=== PATIENT | male | born 1945 | race Caucasian/White ===

== ENCOUNTER 2016-12-01 17:16 | Observation (INO) | payer OTHER, MEDICARE ==
[~2016-12-01] VITALS: Ht 175.3 cm; Wt 81.5 kg
[~2016-12-01 17:16] MED LIST: ASPI81TA82 PO; BUPR150XL PO; CARV25TA PO; COUM5TAB PO; FURO1TAB93 PO; GLIP5 PO; KLOR20TA6 PO; LISI10 PO; SIMV80TA PO; VENTAER INH; WARF5TAB PO
[2016-12-01 17:19] VITALS: BP 198/93; PULSE 89; RESP 17; TEMP 98.4; O2SAT 97
--- NOTE | 2016-12-01 17:25 | PD ---
Physical Exam Date Seen by Provider: Dec 01, 2016 Time Seen by Provider: 17:24 Narrative 71 yo male here for evaluation of chest discomfort. Feels like he is under a lot of stress. Has numbness to the hands, but chest better. [facility] Per patient abnormal vitals at the [place]. History of arrythmia with pacemaker. Some SOB. No abdominal pain. No pain now. Vitals stable in triage. Awaiting bed placement. Data Data Last Documented VS Vital Signs Date Time Temp Pulse Resp B/P (MAP) Pulse Ox O2 Delivery O2 Flow Rate FiO2 12/01/16 17:19 98.4 89 17 198/93 (128) 97 MDM Medical Record Reviewed: Yes Supervised Visit with HENNY: Corey Pichardo Dec 01, 2016 17:25
[2016-12-01 17:32] VITALS: BP 182/81; PULSE 76; RESP 19; O2SAT 98
[2016-12-01] MEDS ORDERED: LISI10TA3 PO (17:44)
[2016-12-01] MEDS ORDERED: COUM5TAB PO (17:44)
[2016-12-01] MEDS ORDERED: FURO1TAB60 PO (17:44)
[2016-12-01] MEDS ORDERED: CARV25TA PO (17:44)
[2016-12-01] MEDS ORDERED: TYLE325T PO (17:44)
[2016-12-01] MEDS ORDERED: ASPI81CH (17:44)
[2016-12-01] MEDS ORDERED: COUM7.5T PO (17:44)
[2016-12-01] MEDS ORDERED: SIMV80TA PO (17:44)
[2016-12-01] MEDS ORDERED: VENTAER INH (17:44)
--- NOTE | 2016-12-01 17:58 | RADRPT ---
EXAM DATE/TIME: 12/01/2016 17:42 [place] COMPARISON: CHEST SINGLE AP, December 07, 2015, 17:13. INDICATIONS : Chest pain. MEDICAL HISTORY : Chronic obstructive pulmonary disease. A Fib. SURGICAL HISTORY : Pacemaker. Triple Bypass. ENCOUNTER: Initial ACUITY: 1 day PAIN SCORE: 4/10 LOCATION: Bilateral chest FINDINGS: Lungs are clear. Cardiomegaly is again seen, and median sternotomy wires are noted. Pacer device agai n noted. CONCLUSION: No acute disease. Zia Crawford MD on December 01, 2016 at 17:56 Board Certified Radiologist. This report was verified electronically.
[2016-12-01] MEDS ORDERED: ASPIRIN 81 MG CHEW TAB CHEW ONE (18:00)
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
[2016-12-01 18:39] VITALS: BP 147/71; PULSE 73; O2SAT 100
[2016-12-01 18:57] LABS: AUTOMATED NEUTROPHIL # 4.4 TH/MM3 (1.8-7.7); BASOPHIL % 0.4 % (0.0-2.0); EOSINOPHIL # 0.3 TH/MM3 (0-0.4); EOSINOPHIL % 4.7 % (0.0-4.0); HEMATOCRIT 40.8 % (39.0-51.0); HEMO FLAGS DIFF FINAL; LYMPH % 21.6 % (9.0-44.0); LYMPHOCYTE # 1.5 TH/MM3 (1.0-4.8); MEAN CELL VOLUME 96.1 FL (80.0-100.0); MEAN CORPUSCULAR HEMOGLOBIN 32.2 PG (27.0-34.0); MEAN CORPUSCULAR HGB CONC 33.5 % (32.0-36.0); MONO % 9.9 % (0.0-8.0); NEUT % 63.4 % (16.0-70.0); PLATELET COUNT 140 TH/MM3 (150-450); RED BLOOD COUNT 4.24 MIL/MM3 (4.50-5.90); RED CELL DISTRIBUTION WIDTH 15.5 % (11.6-17.2); WHITE BLOOD COUNT 6.9 TH/MM3 (4.0-11.0)
[2016-12-01 19:10] VITALS: BP 134/84; PULSE 69
[2016-12-01 19:17] LABS: APTT (PATIENT) 40.9 SEC (24.3-30.1); INTERNATIONAL NORMALIZED RATIO 3.1 RATIO; PROTHROMBIN TIME - PATIENT 36.3 SEC (9.8-11.6)
[2016-12-01 19:29] LABS: ANION GAP 9 MEQ/L (5-15); BICARBONATE 23.7 MEQ/L (21.0-32.0); BLOOD UREA NITROGEN 56 MG/DL (7-18); CHLORIDE 107 MEQ/L (98-107); GLOMERULAR FILTRATION RATE 28 ML/MIN (>89); MAGNESIUM 2.1 MG/DL (1.5-2.5); POTASSIUM 5.3 MEQ/L (3.5-5.1); SODIUM (NA) 140 MEQ/L (136-145)
[2016-12-01 19:33] LABS: CREATINE KINASE 228 U/L (39-308)
[2016-12-01] MEDS ORDERED: SODIUM CHLOR 0.45% 1000 ML INJ 1,000 ML IV SCH (20:44)
[2016-12-01] MEDS ORDERED: BISACODYL 10 MG SUPP RECTAL PRN (20:45)
[2016-12-01] MEDS ORDERED: SENNOSIDES 8.6 MG TAB PO PRN (20:45)
[2016-12-01] MEDS ORDERED: MAGNESIUM HYDROXIDE SUSP 30 ML CUP PO PRN (20:45)
[2016-12-01] MEDS ORDERED: ALBUTEROL SULFATE 90 MCG/ACT HFA 8 GM INHALER INH PRN (20:45)
[2016-12-01] MEDS ORDERED: LACTULOSE SYRUP 20 GM/30 ML CUP PO PRN (20:45)
[2016-12-01] MEDS ORDERED: ONDANSETRON HCL 4 MG/2 ML VIAL IVP PRN (20:45)
[2016-12-01] MEDS ORDERED: NALOXONE HCL 0.4 MG/ML AMP IV PUSH PRN (20:45)
[2016-12-01] MEDS ORDERED: ACETAMINOPHEN 325 MG TAB PO PRN (20:45)
[2016-12-01] MEDS ORDERED: SODIUM CHLORIDE 0.9% FLUSH 10 ML FLUSH IV FLUSH PRN (20:45)
[2016-12-01] MEDS ORDERED: hydrALAZINE HCL 20 MG/ML VIAL IV PRN (20:45)
[2016-12-01] MEDS: SODIUM CHLORIDE 0.9% FLUSH 10 ML FLUSH IV FLUSH SCH (21:00)
[2016-12-01 21:02] VITALS: O2SAT 97
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
[2016-12-01] MEDS: CARVEDILOL 12.5 MG TAB PO SCH (21:38)
[2016-12-02] VITALS (8 sets, daily range): BP systolic 100–147; BP diastolic 52–89; PULSE 60–78; RESP 18–20; TEMP 97.8–98.4; O2SAT 93–97
[2016-12-02 01:11] LABS: CREATINE KINASE 159 U/L (39-308)
[2016-12-02 04:44] LABS: ANION GAP 6 MEQ/L (5-15); BICARBONATE 26.6 MEQ/L (21.0-32.0); BLOOD UREA NITROGEN 52 MG/DL (7-18); CHLORIDE 108 MEQ/L (98-107); GLOMERULAR FILTRATION RATE 38 ML/MIN (>89); POTASSIUM 4.9 MEQ/L (3.5-5.1); SODIUM (NA) 141 MEQ/L (136-145)
[2016-12-02 04:48] LABS: CREATINE KINASE 163 U/L (39-308)
[2016-12-02] MEDS ORDERED: SODIUM CHLOR 0.45% 500 ML INJ 500 ML IV ONE (07:30)
[2016-12-02] MEDS: CARVEDILOL 12.5 MG TAB PO SCH (08:16)
[2016-12-02] MEDS: SODIUM CHLORIDE 0.9% FLUSH 10 ML FLUSH IV FLUSH SCH (08:20)
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
[2016-12-02] MEDS ORDERED: ZOCOR 80 MG PO SCH (09:00)
[2016-12-02] MEDS ORDERED: ASPIRIN 81 MG CHEW TAB SCH (09:00)
[2016-12-02] MEDS ORDERED: WARFARIN SOD 7.5 MG TAB PO SCH (09:00)
--- NOTE | 2016-12-02 11:53 | EKG ---
Date Performed: 12/01/2016 Time Performed: 22:43:39 PTAGE: 71 years EKG: ATRIAL FIBRILLATION POSSIBLE RIGHT VENTRICULAR CONDUCTION DELAY SEPTAL MYOCARDIAL INFARCTIO N Compared to prior tracing no significant change ABNORMAL ECG PREVIOUS TRACING : 12/01/2016 17.42 DOCTOR: Nick Duarte Interpretating Date/Time 12/02/2016 11:52:32
--- NOTE | 2016-12-02 12:31 | EKG ---
Date Performed: 12/01/2016 Time Performed: 17:42:01 PTAGE: 71 years EKG: ATRIAL FIBRILLATION with controlled ventricular rate Nonspecific intraventricular conductio n delay SEPTAL MYOCARDIAL INFARCTION ABNORMAL ECG PREVIOUS TRACING : 12/07/2015 23.54 Compared to prior tracing no significant change DOCTOR: Nick Duarte Interpretating Date/Time 12/02/2016 12:30:21
[2016-12-02 15:52] LABS: BICARBONATE 26.2 MEQ/L (21.0-32.0); POTASSIUM 5.3 MEQ/L (3.5-5.1)
--- NOTE | 2016-12-02 16:11 | HHI.DCPOC ---
Discharge Care Plan Diagnosis: (1) Renal insufficiency (2) DM (diabetes mellitus) (3) Chest pain (4) CAD (coronary artery disease) (5) Afib (6) Hypertension (7) Hyperlipidemia Goals to Promote Your Health * To prevent worsening of your condition and complications * To maintain your health at the optimal level Directions to Meet Your Goals Take your medications as prescribed Follow your dietary instruction Follow activity as directed Keep your appointments as scheduled Take your immunizations and boosters as scheduled If your symptoms worsen call your PCP, if no PCP go to Urgent Care Center or Emergency Room Smoking is Dangerous to Your Health. Avoid second hand smoke Call the 24-hour hour crisis hotline for domestic abuse at Rosa Aguilar PA-C Dec 02, 2016 4:11 pm
== END 2016-12-02 17:15 | disposition home or self-care (01) ==
LOC: NEPC 17:16 → NEDA 20:18 → NEPFCDU 21:55
PROVIDERS: ADMIT Hospitalist; ATTEND Hospitalist
DX: R07.89 Other chest pain (principal); I25.10 Atherosclerotic heart disease of native coronary artery without angina pectoris; E11.9 Type 2 diabetes mellitus without complications; E78.5 Hyperlipidemia, unspecified; I11.0 Hypertensive heart disease with heart failure; I50.9 Heart failure, unspecified; R94.31 Abnormal electrocardiogram [ECG] [EKG]; R20.0 Anesthesia of skin; J44.9 Chronic obstructive pulmonary disease, unspecified; N28.9 Disorder of kidney and ureter, unspecified; M10.9 Gout, unspecified; Z95.1 Presence of aortocoronary bypass graft; Z79.82 Long term (current) use of aspirin
CPT/HCPCS: 71010; 80048; 82550; 82552; 83735; 84484; 85025; 85610; 85730; 93005; 96360; 96361; 99285; G0378